=== PATIENT | male | born 1950 | race Caucasian/White ===

== ENCOUNTER → 2019-01-05 | Outpatient (CLI) | payer OTHER | LOC: RAD 13:05 | DX: J62.8 Pneumoconiosis due to other dust containing silica (principal) ==

== ENCOUNTER → 2020-04-13 | Outpatient (CLI) | payer OTHER | LOC: LAB 14:02 | PROVIDERS: ATTEND Nurse Practitioner | DX: R53.83 Other fatigue (principal); R05 Cough; Z20.822 Contact with and (suspected) exposure to COVID-19 ==

== ENCOUNTER → 2020-12-07 | Outpatient (CLI) | payer OTHER | LOC: ULTRA 08:51 | PROVIDERS: ATTEND Internal Medicine | DX: N28.1 Cyst of kidney, acquired (principal); B18.2 Chronic viral hepatitis C; K76.0 Fatty (change of) liver, not elsewhere classified ==